=== PATIENT | female | born 1950 | race Caucasian/White ===

== ENCOUNTER 2020-09-09 15:25 | Inpatient (IN) | payer MEDICARE, OTHER ==
[~2020-09-09] VITALS: Ht 165.1 cm; Wt 74.5 kg
[2020-09-09 15:58] LABS: BASOPHILS ABSOLUTE AUTO 0.04 K/mm3 (0.00-0.23); BASOPHILS PERCENT AUTO 1 % (0-2); EOSINOPHILS ABSOLUTE AUTO 0.02 K/mm3 (0.00-0.68); EOSINOPHILS PERCENT AUTO 0 % (0-6); Hematocrit 41.7 % (33.0-51.0); Hemoglobin 14.2 g/dL (11.5-16.0); IMMATURE GRAN ABSOLUTE AUTO 0.03 K/mm3 (0.00-0.10); IMMATURE GRAN PERCENT AUTO 0 % (0-1); LYMPHOCYTES ABSOLUTE AUTO 1.81 K/mm3 (0.84-5.20); LYMPHOCYTES PERCENT AUTO 22 % (21-46); MONOCYTES ABSOLUTE AUTO 0.55 K/mm3 (0.16-1.47); MONOCYTES PERCENT AUTO 7 % (4-13); Mean Corpuscular HGB 31.7 pg (26.0-34.0); Mean Corpuscular HGB Conc 34.1 g/dL (31.5-36.5); Mean Corpuscular Volume 93 fL (80-100); Mean Platelet Volume 9.9 fL (9.1-12.4); NEUTROPHILS ABSOLUTE AUTO 5.72 K/mm3 (1.96-9.15); NEUTROPHILS PERCENT AUTO 70 % (41-73); Platelet Count 254 K/mm3 (150-400); RDW Coefficient Variation 11.2 % (11.7-14.2); RDW Standard Deviation 38.8 fL (35.1-46.3); Red Blood Cell Count 4.48 M/mm3 (3.80-5.20); White Blood Cell Count 8.17 K/mm3 (4.00-11.30)
[2020-09-09 16:44] LABS: Alanine Aminotransfer (ALT/SGP 27 U/L (12-78); Albumin, Blood 3.8 g/dL (3.4-5.0); Albumin/Globulin Ratio 1.1 (0.8-1.8); Alk Phos 85 U/L (50-136); Anion Gap 7 mmol/L (6-16); Aspartate Aminotrans (AST/SGOT 25 U/L (12-37); Bilirubin, Total 0.5 mg/dL (0.1-1.0); Blood Urea Nitrogen 13 mg/dL (8-24); Bun/Creatinine Ratio 18.6 (12.0-20.0); CO2, Blood 27 mmol/L (21-32); Calcium, Blood 8.9 mg/dL (8.5-10.1); Chloride, Blood 106 mmol/L (98-108); Globulin, Blood 3.6 g/dL (2.2-4.0); Glomerular Filtration Rate >60 (60-); Glucose, Blood 123 mg/dL (70-99); Potassium, Blood 3.4 mmol/L (3.5-5.5); Sodium, Blood 140 mmol/L (136-145); Total Protein, Blood 7.4 g/dL (6.4-8.2); Troponin I 0.467 ng/mL (0.000-0.040)
[2020-09-09] MEDS ORDERED: FOLI1 PO (17:54)
[2020-09-09] MEDS ORDERED: Azulfidine500 M1 PO (17:54)
[2020-09-09] MEDS ORDERED: ESCI10 PO (17:55)
--- NOTE | 2020-09-09 19:40 | NUR ---
PT ARRIVED FROM ER VIA WC AND SELF TRANSFERRED TO BED W/ NO DIFFICULTY; PT IS A&O X4; DENIES CHEST PAIN; BP ELEVATED AT 178/95; O2 SATS >93 ON RA; DAUGHTER AT BEDSIDE FOR ADMIT; MEAL TRAY GIVEN TO PT; ORIENTED TO ROOM/ CALL LIGHT/ UNIT SAFETY; CALL LIGHT IN REACH; BED IN LOWEST POSITION.
[2020-09-09 19:47] LABS: International Normalized Ratio 0.98; Prothrombin Time Results 10.5 Sec (9.7-11.5)
--- NOTE | 2020-09-09 22:50 | NUR ---
UPDATE HEP GTT AT 13 U/KG/HR; LAB RESULT TROPONIN ELEVATED TO 1.750; NOTIFIED; NO CONSULT ORDERED; NOTIFIED OF ELEVATED BP, NEW ORDER FOR FOR PO HYDRALAZINE AND NORVASC; REFER TO EMAR; NSR NOTED ON TELE W/ HR 60'S; WILL CONTINUE TO MONITOR CLOSELY
[2020-09-10 04:53] LABS: Anion Gap 6 mmol/L (6-16); Blood Urea Nitrogen 12 mg/dL (8-24); Bun/Creatinine Ratio 18.5 (12.0-20.0); CO2, Blood 27 mmol/L (21-32); Calcium, Blood 8.6 mg/dL (8.5-10.1); Chloride, Blood 109 mmol/L (98-108); Creatinine, Blood 0.65 mg/dL (0.40-1.00); Glomerular Filtration Rate >60 (60-); Glucose, Blood 101 mg/dL (70-99); Potassium, Blood 3.6 mmol/L (3.5-5.5); Sodium, Blood 142 mmol/L (136-145)
--- NOTE | 2020-09-10 05:54 | NUR ---
SHIFT SUMMARY PT A&O X4; PLEASANT & COMPLIANT W/ CARE; VSS; NSR NOTED ON TELE; STATES NO CHEST PAIN SINCE ADMISSION; O2 SATS >93 ON RA; DENIES SOB; HEP GTT INCREASED TO 15 U/KG/HR; TROPONIN TRENDING DOWN TO 1.17; CALL LIGHT IN REACH; BED IN LOWEST POSITION; WILL CONTINUE TO MONITOR CLOSELY UNTIL HAND OFF TO DAY SHIFT RN.
--- NOTE | 2020-09-10 08:00 | NUR ---
ASSUMED CARE BEDSIDE REPORT RECIEVED. PT IS AWAKE, ALERT, AND ORIENTED. PT ANSWERS QUESTIONS APPROPRIATELY. PT DENIES CHEST PAIN OR DISCOMFORT AT THIS TIME. PT DENIES SOB OR NUMBNESS/TINGLING. VITAL SIGNS STABLE. PT ON ROOM AIR. HEPARIN GTT INFUSING AT 15 UNITS/KG/HR. WILL CONTINUE TO MONITOR.
[2020-09-10 09:20] LABS: CHOL/HDL RATIO 4.4; Cholesterol 245 mg/dL (50-200); HDL Cholesterol 56 mg/dL (>39); LDL/HDL RATIO 2.7; Low Density Lipoprotein Chol 151 mg/dL (0-110); Triglycerides 190 mg/dL (30-160); Very Low Density Lipoprot Chol 38 mg/dL (6-32)
[2020-09-10 09:30] LABS: CHOL/HDL RATIO 4.6; Cholesterol 252 mg/dL (50-200); HDL Cholesterol 55 mg/dL (>39); LDL/HDL RATIO 2.9; Low Density Lipoprotein Chol 159 mg/dL (0-110); Triglycerides 190 mg/dL (30-160); Very Low Density Lipoprot Chol 38 mg/dL (6-32)
[2020-09-10 10:20] LABS: Influenza A, PCR Negative (NEGATIVE); Influenza B, PCR Negative (NEGATIVE); Resp Syncytial Virus, PCR Negative (NEGATIVE); SARS-Cov-2 (COVID-19) PCR, MMC Negative (NEGATIVE)
--- NOTE | 2020-09-10 13:07 | NUR ---
RETURN FROM SUPPLY PERSON PT RETURNED FROM SUPPLY PERSON WITH TR BAND IN PLACE TO RIGHT RADIAL ACCESS SITE. PT IS ALERT AND ORIENTED. PT DENIES ANY PAIN OR DISCOMFORT AT THIS TIME. PT WITH ARM BOARD IN PLACE TO RIGHT WRIST. PT EDUCATED ABOUT TR BAND DEFLATION PROCESS AND VERBALIZES UNDERSTANDING. WILL CONTINUE TO MONITOR.
--- NOTE | 2020-09-10 16:44 | NUR ---
SHIFT SUMMARY PT DOING WELL THIS SHIFT. PT S/P ANGIO WITH STENT PLACEMENT THIS AFTERNOON. PT HAS REMAINED ALERT AND ORIENTED. PT WITH NO COMPLAINTS OF PAIN, DISCOMFORT, SOB, OR NAUSEA. IV'S SALINE LOCKED. PT TAKING PO FLUIDS WELL. PT INDEPENDENT IN ROOM. TR BAND REMAINS IN PLACE TO RIGHT RADIAL ACCESS SITE, DEFLATED AT THIS TIME. ARM BOARD IN PLACE. SITE IS SOFT, NONTENDER, NO OOZING NOTED. PT DAUGHTER AT BEDSIDE AT THIS TIME. VITAL SIGNS STABLE. WILL CONTINUE TO MONITOR AND REPORT OFF TO ONCOMING RN.
--- NOTE | 2020-09-10 19:20 | NUR ---
ASSUMED CARE PT A&O; SMILING AND LAUGHING W/ STAFF; STATES SHE FEELS MUCH IMPROVED; DENIES CHEST PAIN/ PRESSURE; R RADIAL SITE C/D/I W/ TEGADERM DRESSING AND ARM BOARD IN PLACE; ADDITIONAL EDUCATION PROVIDED ON NOT USING R ARM AND SAFETY TO SITE; VSS; NSR NOTED ON TELE; O2 SATS >93 ON RA; NO DISTRESS NOTED; CALL LIGHT IN REACH; BED IN LOWEST POSITION.
[2020-09-11 04:22] LABS: BASOPHILS ABSOLUTE AUTO 0.03 K/mm3 (0.00-0.23); BASOPHILS PERCENT AUTO 0 % (0-2); EOSINOPHILS ABSOLUTE AUTO 0.05 K/mm3 (0.00-0.68); EOSINOPHILS PERCENT AUTO 1 % (0-6); Hematocrit 39.4 % (33.0-51.0); IMMATURE GRAN ABSOLUTE AUTO 0.02 K/mm3 (0.00-0.10); IMMATURE GRAN PERCENT AUTO 0 % (0-1); LYMPHOCYTES ABSOLUTE AUTO 2.48 K/mm3 (0.84-5.20); LYMPHOCYTES PERCENT AUTO 36 % (21-46); MONOCYTES ABSOLUTE AUTO 0.73 K/mm3 (0.16-1.47); MONOCYTES PERCENT AUTO 11 % (4-13); Mean Corpuscular Volume 94 fL (80-100); Mean Platelet Volume 10.2 fL (9.1-12.4); NEUTROPHILS ABSOLUTE AUTO 3.52 K/mm3 (1.96-9.15); NEUTROPHILS PERCENT AUTO 52 % (41-73); Platelet Count 233 K/mm3 (150-400); RDW Coefficient Variation 11.6 % (11.7-14.2); RDW Standard Deviation 39.6 fL (35.1-46.3); White Blood Cell Count 6.83 K/mm3 (4.00-11.30)
[2020-09-11 04:37] LABS: Albumin, Blood 3.3 g/dL (3.4-5.0); Anion Gap 8 mmol/L (6-16); Blood Urea Nitrogen 10 mg/dL (8-24); Bun/Creatinine Ratio 17.8 (12.0-20.0); CO2, Blood 24 mmol/L (21-32); Calcium, Blood 8.7 mg/dL (8.5-10.1); Chloride, Blood 109 mmol/L (98-108); Creatinine, Blood 0.56 mg/dL (0.40-1.00); Glomerular Filtration Rate >60 (60-); Glucose, Blood 111 mg/dL (70-99); Phosphorus, Blood 3.3 mg/dL (2.5-4.9); Potassium, Blood 3.6 mmol/L (3.5-5.5); Sodium, Blood 141 mmol/L (136-145)
--- NOTE | 2020-09-11 06:11 | NUR ---
SHIFT SUMMARY PT A&O X4; PLEASANT & COMPLIANT W/ CARE; VSS; NSR NOTED ON TELE W/ HR 70'S; R RADIAL SITE REMAINED UNCHANGED T/O SHIFT; TEGADERM IN PLACE; ARM BOARD IN PLACE; O2 SATS >93 ON RA; LUNG SOUNDS CLEAR; CALL LIGHT IN REACH; BED IN LOWEST POSITION; WILL CONTINUE TO MONITOR CLOSELY UNTIL HAND OFF TO DAY SHIFT RN.
[2020-09-11] MEDS ORDERED: ACET500 PO (11:32)
[2020-09-11] MEDS ORDERED: ALUM-MAG HYDROX30 ML PO (11:33)
[2020-09-11] MEDS ORDERED: ASPI81CH PO (11:34)
[2020-09-11] MEDS ORDERED: ATOR40TA PO (11:34)
[2020-09-11] MEDS ORDERED: FAMO20 PO (11:35)
[2020-09-11] MEDS ORDERED: CLOP75 PO (11:35)
[2020-09-11] MEDS ORDERED: METO25ER PO (11:37)
[2020-09-11] MEDS ORDERED: PANT20 PO (11:37)
[2020-09-11] MEDS ORDERED: ZOLP5 PO (11:38)
--- NOTE | 2020-09-11 15:59 | NUR ---
DISCHARGE SUMMARY PT A&Ox4; CALM AND COOPERATIVE WITH CARE. PT RESTING IN BED DURING SHIFT. UP TO BATHROOM IND. RIGHT RADIAL SITE C/D/I; NO BRUISING, BLEEDING OR HEMATOMA NOTED. PT DENIES PAIN, CHEST PAIN, DIZZINESS, SOB AND NAUSEA. VSS. PT EDUCATED ON DISCHARGE INSTRUCTIONS, FOLLOW UP APPOINTMENTS AND MEDICATIONS. PT EDUCATED ON PHYSICAL ACTIVITY RESTRICTIONS AND PLAVIX AND ASPIRIN. PRESCRIPTIONS FAXED TO [facility] PER PT REQUEST. PT LEFT ROOM VIA WHEELCHAIR AT 1444. PT STABLE UPON DISCHARGE.
== END 2020-09-11 14:46 | disposition home or self-care (01) | DRG 247 ==
LOC: ER 15:25 → PCU 15:26 → ER 19:18 → PCU 09-10 11:18 → ENPENDDIS 09-11 11:16 → PCU 09-11 14:46
PROVIDERS: Internal Medicine; Internal Medicine Cardiovascular Disease; Pharmacist; Physician Assistant; ADMIT Internal Medicine
PROC: 027034Z Dilation of Coronary Artery, One Artery with Drug-eluting Intraluminal Device, Percutaneous Approach (ICD-10-PCS; principal; 2020-09-10)
PROC: 4A023N7 Measurement of Cardiac Sampling and Pressure, Left Heart, Percutaneous Approach (ICD-10-PCS; 2020-09-10)
PROC: B2111ZZ Fluoroscopy of Multiple Coronary Arteries using Low Osmolar Contrast (ICD-10-PCS; 2020-09-10)
PROC: B240ZZ3 Ultrasonography of Single Coronary Artery, Intravascular (ICD-10-PCS; 2020-09-10)
DX: I21.4 Non-ST elevation (NSTEMI) myocardial infarction (principal); I25.10 Atherosclerotic heart disease of native coronary artery without angina pectoris; Z20.828 Contact with and (suspected) exposure to other viral communicable diseases; K52.839 Microscopic colitis, unspecified; E66.9 Obesity, unspecified; F32.9 Major depressive disorder, single episode, unspecified; K21.9 Gastro-esophageal reflux disease without esophagitis; I10 Essential (primary) hypertension; E78.5 Hyperlipidemia, unspecified; Z68.27 Body mass index [BMI] 27.0-27.9, adult; Z79.899 Other long term (current) drug therapy
CPT/HCPCS: 0241U; 36415; 71046; 76937; 80048; 80053; 80061; 80069; 84484; 85025; 85347; 85610; 85730; 92978; 93005; 93010; 93306; 93454; 99152; 99153; 99285-25; A9270; A9270-GY; C1725; C1753; C1769; C1874; C1887; C1894; C9600; G0378; J1644; J2250; J3010; J7030; J7050; Q9967

== ENCOUNTER → 2023-08-30 | Outpatient (CLI) | payer MEDICARE ==
[~2023-08-30] MED LIST: ACET500 PO; ALUM-MAG HYDROX30 ML PO; ASPI81CH PO; ATOR40TA PO; Azulfidine500 M1 PO; CLOP75 PO; ESCI10 PO; FAMO20 PO; FOLI1 PO; METO25ER PO; PANT20 PO; ZOLP5 PO
== END ==
LOC: LAB 10:56 → LAB SHORT 10:56
DX: N30.01 Acute cystitis with hematuria (principal)
CPT/HCPCS: 87077; 87086; 87186

== ENCOUNTER → 2023-09-07 | Outpatient (CLI) | payer MEDICARE | END | disposition home or self-care (01) | LOC: LAB 15:03 → LAB SHORT 15:03 | DX: R82.90 Unspecified abnormal findings in urine (principal) | CPT/HCPCS: 87077; 87086; 87186 ==